=== PATIENT | female | born 1975 ===

== ENCOUNTER 2024-01-05 07:15 | Inpatient (IN) | payer OTHER ==
[~2024-01-05] VITALS: Ht 167.6 cm; Wt 73.9 kg
[2024-01-05] MEDS ORDERED: BACLOFEN 10 MG (07:54)
[2024-01-05] MEDS ORDERED: ROSUVASTATIN CA20 MG (07:54)
[2024-01-05] MEDS ORDERED: ESCITALOPRA5 MG/5 ML (07:55)
[2024-01-05] MEDS ORDERED: ZIPSOR25 MG (07:55)
[2024-01-05] MEDS ORDERED: DIALYVITE TABL1 EACH (07:56)
[2024-01-05] MEDS ORDERED: FERROUS SULFATE (07:56)
[2024-01-05 08:24] LABS: HEMATOCRIT 38.1 % (36.0-45.00); HEMOGLOBIN 12.8 g/dL (12.0-15.00); MEAN CORPUSCULAR HEMOGLOBIN 27.2 pg (27.00-32.0); MEAN CORPUSCULAR HGB CONC 33.6 g/dl (32.0-36.0); PLATELET COUNT 255 K/uL (150-450); RED BLOOD COUNT 4.71 M/uL (4.00-6.00); RED CELL DISTRIBUTION WIDTH 17.6 % (11.5-14.5)
[2024-01-05 08:31] LABS: URINE APPEARANCE Clear; URINE BILIRRUBIN Negative (NEGATIVE); URINE BLOOD Negative; URINE COLOR Yellow; URINE GLUCOSE Negative (NEGATIVE); URINE LEUKOCYTE Negative; URINE NITRATE Negative; URINE PROTEIN Negative (NEGATIVE); URINE UROBILINOGEN 0.2 E.U./dl
[2024-01-05 08:36] LABS: URINE BACTERIA 345.2 uL (0.0-1933); URINE EPITHELIAL CELLS 12.3 uL (0.0-38.8); URINE RBC 8.5 uL (0.0-20.8); URINE WBC 2.3 uL (0.0-23.2)
[2024-01-05 08:47] LABS: INR 0.99; PARTIAL THROMBOPLASTIN TIME 26.2 SECONDS (22.0-34.0); PROTHROMBIN TIME 10.4 SECONDS (9.0-11.5)
[2024-01-05 09:28] LABS: ALBUMIN 3.8 gm/dL (3.4-5.0); BILIRUBIN TOTAL 0.49 mg/dL (0.3-1.2); CALCIUM 9.3 mg/dL (8.5-10.1); CREATININE SERUM 0.77 mg/dL (0.55-1.02); GFR 79.03; GLOBULINA 3.8 G/DL (2.4-3.5); POTASSIUM 4.14 mEq/L (3.5-5.1); TOTAL PROTEIN 7.6 gm/dL (6.4-8.2); TSH 1.9 uIU/mL (0.358-3.74)
[2024-01-13] MEDS ORDERED: CEFOXITIN SODIUM 2,000 MG VIAL IV ONE (10:24)
[2024-01-13] MEDS ORDERED: POVIDONE-IODINE 118 ML BOTT TOP ONE (10:27)
[2024-01-13] MEDS ORDERED: PROMETHAZINE HCL 50 MG/ML AMPUL IV SCH (13:58)
[2024-01-13] MEDS ORDERED: MEPERIDINE HCL/PF 50 MG/ML VIAL IV SCH (13:58)
[2024-01-13] MEDS ORDERED: RINGERS SOLUTION,LACTATED 1,000 ML IV SCH (14:00)
[2024-01-13] MEDS ORDERED: BACLOFEN10 MG (14:45)
[2024-01-13] MEDS ORDERED: FEOSOL325 MG (14:45)
[2024-01-13 16:00] LABS: HEMATOCRIT 36.7 % (36.0-45.00); HEMOGLOBIN 12.1 g/dL (12.0-15.00); MEAN CELL VOLUME 82.5 fL (80.00-100.00); MEAN CORPUSCULAR HEMOGLOBIN 27.2 pg (27.00-32.0); MEAN CORPUSCULAR HGB CONC 32.9 g/dl (32.0-36.0); PLATELET COUNT 237 K/uL (150-450); RED BLOOD COUNT 4.45 M/uL (4.00-6.00)
[2024-01-13] MEDS ORDERED: SIMETHICONE 125 MG CAPSULE PO SCH (17:00)
[2024-01-13] MEDS ORDERED: SIMETHICONE 125 MG CAPSULE PO ONE (17:54)
[2024-01-14] MEDS ORDERED: tylenol #3 PO (08:54)
[2024-01-14] MEDS ORDERED: NAPR500T14 PO (08:54)
[2024-01-14] MEDS ORDERED: ACETAMINOPHEN WITH CODEINE 1 UDTAB TABLET PO ONE (09:00)
== END 2024-01-14 13:26 | disposition home or self-care (01) | DRG 743 ==
LOC: SURH 01-13 07:15 → O/R 01-13 08:53 → OB/GYN 01-13 08:53 → SURH 01-13 13:00 → OB/GYN 01-13 17:32
PROVIDERS: ADMIT Obstetrics & Gynecology; ATTEND Obstetrics & Gynecology
PROC: 0UT7FZZ Resection of Bilateral Fallopian Tubes, Via Natural or Artificial Opening With Percutaneous Endoscopic Assistance (ICD-10-PCS; 2024-01-13)
PROC: 0UT2FZZ Resection of Bilateral Ovaries, Via Natural or Artificial Opening With Percutaneous Endoscopic Assistance (ICD-10-PCS; 2024-01-13)
PROC: 0JQC0ZZ Repair Pelvic Region Subcutaneous Tissue and Fascia, Open Approach (ICD-10-PCS; 2024-01-13)
PROC: 0USG4ZZ Reposition Vagina, Percutaneous Endoscopic Approach (ICD-10-PCS; 2024-01-13)
PROC: 0TJB8ZZ Inspection of Bladder, Via Natural or Artificial Opening Endoscopic (ICD-10-PCS; 2024-01-13)
PROC: 0UT9FZZ Resection of Uterus, Via Natural or Artificial Opening With Percutaneous Endoscopic Assistance (ICD-10-PCS; principal; 2024-01-13 13:00)
DX: D25.1 Intramural leiomyoma of uterus (principal); D25.2 Subserosal leiomyoma of uterus; D25.0 Submucous leiomyoma of uterus; N80.03 Adenomyosis of the uterus; Z20.822 Contact with and (suspected) exposure to COVID-19